=== PATIENT | male | born 1970 | race Caucasian/White ===

== ENCOUNTER → 2016-04-27 | Outpatient (REF) ==
--- NOTE | 2016-04-27 12:04 | REP ---
Left hand series: Four views. History: Disability. Degenerative disc disease. Findings: Four views of the left hand show a metallic screw plate device in position over the dorsal aspect of the fourth metacarpal. No malalignment or bony deformity is seen here. There is some osteoarthritis at the radiocarpal articulation with joint space narrowing and sclerosis. Mild osteoarthritic spurring is seen at the IP and MCP joint of the thumb and minimal spurring is seen at the DIP joint of the index and long finger. No erosive change is appreciated. There is osteoarthritic spurring and some joint space narrowing with fragmented osteophyte formation at the fifth metacarpophalangeal joint. Impression: Osteoarthritic changes in multiple locations as above. Screw plate fixation device in the fourth metacarpal. Signed by Varun Esqueda MD 04/27/2016 12:26 P
--- NOTE | 2016-04-27 12:11 | REP ---
LUMBAR SPINE, THREE VIEWS: HISTORY: Degenerative disc disease. There is no acute fracture or subluxation. A limbus vertebra is present at the L4 level. The intervertebral discs are decreased in height. Vacuum phenomenon is present at the L3-4 and L4-5 levels. These findings are consistent with disc degeneration. Osteophytes are present throughout the lumbar spine. There is minimal scoliosis convex to the right. IMPRESSION: Degenerative change as described above. Signed by Venkatesh Loja MD 04/27/2016 12:13 P
== END ==
LOC: M SMT 10:31
PROVIDERS: ATTEND Internal Medicine
DX: Z02.1 Encounter for pre-employment examination (principal)